=== PATIENT | male | born 1995 | race American Indian/Alaskan Native ===

== ENCOUNTER 2020-06-10 14:57 | Emergency (ER) | payer SELFPAY ==
[2020-06-10 15:08] VITALS: BP 146/71
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
[2020-06-10] MEDS ORDERED: IBUPROFEN 600 MG TAB PO ONE (18:03)
--- NOTE | 2020-06-10 19:00 | Vascular Lab Report ---
DUPLEX DOPPLER LOWER EXTREMITY VEINS, RIGHT INDICATION / CLINICAL INFORMATION: swelling and pain. TECHNIQUE: Duplex doppler imaging was performed through the veins of the right lower extremity using venous comp ression and other maneuvers. COMPARISON: None available. FINDINGS: RIGHT COMMON FEMORAL VEIN: Negative. RIGHT FEMORAL VEIN: Negative. RIGHT POPLITEAL VEIN: Negative. RIGHT CALF VEINS: Negative. ADDITIONAL FINDINGS: None. IMPRESSION: 1. No sonographic evidence for DVT in the right lower extremity. Signer Name: Humberto Owens MD Signed: 06/10/2020 6:56 PM Workstation Name: [id number]
== END 2020-06-10 20:39 | disposition home or self-care (01) ==
LOC: ED 14:57
DX: S81.851A Open bite, right lower leg, initial encounter (principal); W50.3XXA Accidental bite by another person, initial encounter; Y93.89 Activity, other specified; Y92.89 Other specified places as the place of occurrence of the external cause; Y99.8 Other external cause status

== ENCOUNTER 2021-12-10 15:34 | Emergency (ER) | payer SELFPAY ==
[2021-12-10 16:20] VITALS: BP 148/91
--- NOTE | 2021-12-10 17:28 | XRay Report ---
RIGHT FOREARM 2 VIEWS INDICATION / CLINICAL INFORMATION: fracture. COMPARISON: None available. FINDINGS: BONES / JOINT(S): No acute fracture or subluxation. No other significant abnormality. SOFT TISSUES: No significant abnormality. ADDITIONAL FINDINGS: None. IMPRESSION: 1. No acute findings. Signer Name: Qamar Frias MD Signed: 12/10/2021 5:24 PM Workstation Name: [id number]
--- NOTE | 2021-12-10 17:29 | XRay Report ---
RIGHT WRIST 3 VIEWS INDICATION / CLINICAL INFORMATION: fracture. COMPARISON: None available. FINDINGS: BONES / JOINT(S): No acute fracture or subluxation. No other significant abnormality. SOFT TISSUES: No significant abnormality. ADDITIONAL FINDINGS: None. IMPRESSION: 1. No acute findings. Signer Name: Qamar Frias MD Signed: 12/10/2021 5:24 PM Workstation Name: [id number]
[2021-12-10] MEDS ORDERED: ONDANSETRON 4 MG ODT TAB PO ONE (21:03)
[2021-12-10] MEDS ORDERED: HYDROcodone/ACETAMINOPHEN 7.5-325MG TAB PO ONE (21:03)
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
== END 2021-12-10 22:45 | disposition home or self-care (01) ==
LOC: ED 15:34
DX: S63.8X1A Sprain of other part of right wrist and hand, initial encounter (principal); S66.319A Strain of extensor muscle, fascia and tendon of unspecified finger at wrist and hand level, initial encounter; X58.XXXA Exposure to other specified factors, initial encounter; Y93.89 Activity, other specified; Y92.89 Other specified places as the place of occurrence of the external cause; Y99.8 Other external cause status
CPT/HCPCS: 99283; J3490; Q0162